=== PATIENT | male | born 2000 | race Caucasian/White ===

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

== ENCOUNTER → 2018-02-12 | Day surgery (SDC) | payer BC ==
[~2018-02-12] MED LIST: LACTATED RINGERS 1,000 ML IV SCH; LIDOCAINE 1% 20 ML VIAL (10MG/ML) FOR IV START INTRADERMA PRN
[2018-02-12 12:26] VITALS: BP 115/62; PULSE 66; RESP 16; TEMP 98.6
== END ==
LOC: ORWHC2ENDO 11:53
DX: R10.13 Epigastric pain (principal); R19.4 Change in bowel habit; Z53.8 Procedure and treatment not carried out for other reasons

== ENCOUNTER 2019-01-01 21:46 | Emergency (ER) | payer BC ==
[2019-01-01] MEDS ORDERED: ONDANSETRON ODT 4 MG TAB PO STA (22:37)
[2019-01-01] MEDS ORDERED: ACETAMINOPHEN TAB 500 MG TAB PO STA (22:37)
[2019-01-01] MEDS ORDERED: IBUPROFEN 600 MG TAB PO STA (22:37)
--- NOTE | 2019-01-01 22:37 | ED ---
General Adult HPI - General Source: patient, family, RN notes reviewed Mode of arrival: ambulatory Limitations: no limitations <Johny Matson - Last Filed: 01/02/19 23:28> <Jose Hutson - Last Filed: 01/03/19 07:59> - General Chief complaint: Shortness of Breath Stated complaint: NVD Headache, foot infection Time Seen by Provider: 01/01/19 22:25 - History of Present Illness Initial comments: 18-year-old male presents to the emergency department for multiple complaints. Patient's main complaint is cough. Patient states he has had a cough for 6 months that has worsened in the past several days. Denies smoking. Denies coughing anything up, states this is a dry cough. States he gets coughing so hard he feels short of breath at times. He states he is also having nausea vomiting and diarrhea since yesterday. Patient denies any abdominal pain with this. Patient also complains of an infection on the bottom of his right foot. States this has been there for months.Patient has no other complaints at this time including shortness of breath, chest pain, abdominal pain, headache, or visual changes. (Johny Matson) - Related Data Home Medications Medication Instructions Recorded Confirmed Phenylephrine/Dm/Acetaminop/GG 1 tab PO BID PRN 01/01/19 01/01/19 [Tylenol Cold-Flu Severe Caplet] Allergies Allergy/AdvReac Type Severity Reaction Status Date / Time Penicillins Allergy Anaphylaxis Verified 01/01/19 22:37 Review of Systems ROS Other: All systems not noted in ROS Statement are negative. <Johny Matson - Last Filed: 01/02/19 23:28> ROS Other: All systems not noted in ROS Statement are negative. <Jose Hutson - Last Filed: 01/03/19 07:59> ROS Statement: Those systems with pertinent positive or pertinent negative responses have been documented in the HPI. Past Medical History Past Medical History: No Reported History Additional Past Medical History / Comment(s): chronic diarrhea. per grandmothe r, "enlarged spleen." COLONOSCOPY/EGD CANCELED 02/13/18 D/T UNABLE TO TOLERATE LIQUID BOWEL PREP, HAD VOMITED. History of Any Multi-Drug Resistant Organisms: None Reported Past Surgical History: No Surgical Hx Reported Past Anesthesia/Blood Transfusion Reactions: No Reported Reaction, Family History of Problems w/ Anesthesia Additional Past Anesthesia/Blood Transfusion Reaction / Comment(s): MOTHER & Grandma wakes up during surgery. Patient has never had anesthesia. Severe phobia of needles. Past Psychological History: No Psychological Hx Reported Smoking Status: Never smoker Past Alcohol Use History: Rare Past Drug Use History: Marijuana <Johny Matson P - Last Filed: 01/02/19 23:28> General Exam Limitations: no limitations General appearance: alert, in no apparent distress Head exam: Present: atraumatic, normocephalic, normal inspection Eye exam: Present: normal appearance, PERRL, EOMI. Absent: scleral icterus, conjunctival injection, periorbital swelling ENT exam: Present: normal exam, mucous membranes moist Neck exam: Present: normal inspection, full ROM. Absent: tenderness, meningism us, lymphadenopathy, thyromegaly Respiratory exam: Present: normal lung sounds bilaterally. Absent: respiratory distress, wheezes, rales, rhonchi, stridor Cardiovascular Exam: Present: regular rate, normal rhythm, normal heart sounds. Absent: systolic murmur, diastolic murmur, rubs, gallop, clicks GI/Abdominal exam: Present: soft, tenderness (mild tenderness withot gurading noted to LLQ), normal bowel sounds. Absent: distended, guarding, rebound, rigid Extremities exam: Present: other (patient has a wart present on the bottom of the right foot. NO erythema or evidence of infection) Neurological exam: Present: alert, oriented X3, CN II-XII intact Psychiatric exam: Present: normal affect, normal mood <Johny Matson P - Last Filed: 01/02/19 23:28> Course <Johny Matson P - Last Filed: 01/02/19 23:28> Vital Signs 01/01/19 01/01/19 01/01/19 21:51 22:30 22:36 Temperature 99.2 F 101.6 F H Pulse Rate 129 H Respiratory 20 20 Rate Blood Pressure 123/60 O2 Sat by Pulse 98 Oximetry 01/01/19 01/02/19 01/02/19 23:44 01:59 02:43 Temperature 102.7 F H 98.8 F 98.9 F Pulse Rate 104 H 97 102 H Respiratory 19 20 20 Rate Blood Pressure 148/78 O2 Sat by Pulse 97 98 Oximetry - Reevaluation(s) Reevaluation #1: 01/02/19 22:00 given patient's fever and tachycardia I recommend IV and blood work due to multiple concerns. These were discussed with patient. Patient refuses these stating he does not want an IV or blood work done and would rather see his primary care provider. (Johny Matson) Reevaluation #2: 01/02/19 23:00 Dr. Barajas saw patient. Further recommends IV which patient does finally agree to. Given the patient's tachycardia and cough with shortness of breath is concerned for PE. Given LLQ abdominal pain, NVD, and fever CT will be ordered of abdomen pelvis. (Johny Matson) Reevaluation #3: 01/02/19 00:35 CT came to room to take patient. Patient apparently told them he did not want to go right now and would rather go to the bathroom at this time. (Johny Matson) Medical Decision Making - Lab Data Result diagrams: 01/02/19 00:22 01/02/19 00:22 <Johny Matson - Last Filed: 01/02/19 23:28> - Lab Data Result diagrams: 01/02/19 00:22 01/02/19 00:22 <Jose Hutson - Last Filed: 01/03/19 07:59> - Medical Decision Making 18-year-old male since to the emergency department for multiple complaints. Main complaint is cough that he has had for 6 months that worsened in the past several days with some shortness of breath. Denies smoking. Patient also has nausea vomiting diarrhea since yesterday. Denies any abdominal pain with this. However patient does have redness that is the left lower quadrant on exam. CBC does show mild white count of 12.9, likely reactive in nature. CMP unremarkable. CT abdomen and pelvis does show scattered fluid and air fluid levels and nondilated small and large bowel which are nonspecific and may reflect mild ileus or enterocolitis. Chest CTA shows no evidence of pulmonary embolism. Patient is febrile here in the emergency department. Likely has a viral syndrome. Patient will follow up with primary care in 1-2 days. Will return here if he has any worsening symptoms. (Johny Matson) I saw this patient in conjunction with the physician painter assistant. I performed independent history and physical exam. Agree with case management. (Jose Hutson) - Lab Data Lab Results 01/01/19 01/02/19 01/02/19 Range/Units 22:25 00:22 00:22 WBC 12.9 H (4.0-11.0) k/uL RBC 5.25 (4.30-5.90) m/uL Hgb 13.5 (13.0-17.5) gm/dL Hct 40.9 (39.0-53.0) % MCV 77.7 L (80.0-100.0) fL MCH 25.7 (25.0-35.0) pg MCHC 33.1 (31.0-37.0) g/dL RDW 14.0 (11.5-15.5) % Plt Count 173 (150-450) k/uL Neutrophils % 85 % Lymphocytes % 10 % Monocytes % 3 % Eosinophils % 2 % Basophils % 0 % Neutrophils # 10.9 H (1.3-7.7) k/uL Lymphocytes # 1.2 (1.0-4.8) k/uL Monocytes # 0.4 (0-1.0) k/uL Eosinophils # 0.3 (0-0.7) k/uL Basophils # 0.0 (0-0.2) k/uL PT (9.0-12.0) sec INR (<1.2) APTT (22.0-30.0) sec D-Dimer (<0.60) mg/L FEU Sodium 134 L (137-145) mmol/L Potassium 4.6 (3.5-5.1) mmol/L Chloride 100 (98-107) mmol/L Carbon Dioxide 22 (22-30) mmol/L Anion Gap 12 mmol/L BUN 14 (9-20) mg/dL Creatinine 0.71 (0.66-1.25) mg/dL Est GFR (CKD-EPI)AfAm >90 (>60 ml/min/1.73 sqM) Est GFR (CKD-EPI)NonAf >90 (>60 ml/min/1.73 sqM) Glucose 91 (74-99) mg/dL Plasma Lactic Acid Holden (0.7-2.0) mmol/L Calcium 8.8 (8.4-10.2) mg/dL Total Bilirubin 1.4 H (0.2-1.3) mg/dL AST 23 (17-59) U/L ALT 22 (21-72) U/L Alkaline Phosphatase 92 (38-126) U/L Troponin I (0.000-0.034) ng/mL Total Protein 7.4 (6.3-8.2) g/dL Albumin 3.8 (3.5-5.0) g/dL Influenza Type A RNA Not Detected (Not Detectd) Influenza Type B (PCR) Not Detected (Not Detectd) 01/02/19 01/02/19 01/02/19 Range/Units 00:34 00:34 00:34 WBC (4.0-11.0) k/uL RBC (4.30-5.90) m/uL Hgb (13.0-17.5) gm/dL Hct (39.0-53.0) % MCV (80.0-100.0) fL MCH (25.0-35.0) pg MCHC (31.0-37.0) g/dL RDW (11.5-15.5) % Plt Count (150-450) k/uL Neutrophils % % Lymphocytes % % Monocytes % % Eosinophils % % Basophils % % Neutrophils # (1.3-7.7) k/uL Lymphocytes # (1.0-4.8) k/uL Monocytes # (0-1.0) k/uL Eosinophils # (0-0.7) k/uL Basophils # (0-0.2) k/uL PT 10.4 (9.0-12.0) sec INR 1.0 (<1.2) APTT 27.9 (22.0-30.0) sec D-Dimer 0.80 H (<0.60) mg/L FEU Sodium (137-145) mmol/L Potassium (3.5-5.1) mmol/L Chloride (98-107) mmol/L Carbon Dioxide (22-30) mmol/L Anion Gap mmol/L BUN (9-20) mg/dL Creatinine (0.66-1.25) mg/dL Est GFR (CKD-EPI)AfAm (>60 ml/min/1.73 sqM) Est GFR (CKD-EPI)NonAf (>60 ml/min/1.73 sqM) Glucose (74-99) mg/dL Plasma Lactic Acid Holden 1.2 (0.7-2.0) mmol/L Calcium (8.4-10.2) mg/dL Total Bilirubin (0.2-1.3) mg/dL AST (17-59) U/L ALT (21-72) U/L Alkaline Phosphatase (38-126) U/L Troponin I <0.012 (0.000-0.034) ng/mL Total Protein (6.3-8.2) g/dL Albumin (3.5-5.0) g/dL Influenza Type A RNA (Not Detectd) Influenza Type B (PCR) (Not Detectd) Disposition Is patient prescribed a controlled substance at d/c from ED?: No Time of Disposition: 23:32 <Johny Matson - Last Filed: 01/02/19 23:28> Is patient prescribed a controlled substance at d/c from ED?: No <Jose Hutson - Last Filed: 01/03/19 07:59> Clinical Impression: Fever, Viral syndrome Disposition: HOME SELF-CARE Condition: Fair Instructions (If sedation given, give patient instructions): Viral Syndrome (ED) Referrals: Emmy Denis MD [Primary Care Provider] - 1-2 days
--- NOTE | 2019-01-01 23:20 | XR ---
EXAM: XR Chest, 2 Views CLINICAL HISTORY: Reason: Pain TECHNIQUE: Frontal and lateral views of the chest. COMPARISON: Chest x-ray 07/11/2017 FINDINGS: Lungs: Lungs are clear without infiltrates or consolidations. Pleural space: No evidence of pleural effusion or pneumothorax. Heart: Heart size is within normal limits. Mediastinum: Mediastinal structures are unremarkable. Bones/joints: Imaged bony thorax is unremarkable. IMPRESSION: No evidence of acute cardiopulmonary disease.
[2019-01-02] MEDS ORDERED: SODIUM CHLORIDE 0.9% 500 ML 500 ML IV STA (00:01)
[2019-01-02 00:37] LABS: Basophils % (A) 0 %; Eosinophils # (A) 0.3 k/uL (0-0.7); Eosinophils % (A) 2 %; HCT 40.9 % (39.0-53.0); HGB 13.5 gm/dL (13.0-17.5); Lymphocytes # (A) 1.2 k/uL (1.0-4.8); Lymphocytes % (A) 10 %; MCH 25.7 pg (25.0-35.0); MCHC 33.1 g/dL (31.0-37.0); MCV 77.7 fL (80.0-100.0); Mean Platelet Volume 7.2; Monocytes # (A) 0.4 k/uL (0-1.0); Monocytes % (A) 3 %; Neutrophils # (A) 10.9 k/uL (1.3-7.7); Neutrophils % (A) 85 %; Platelet Count 173 k/uL (150-450); RBC 5.25 m/uL (4.30-5.90); WBC 12.9 k/uL (4.0-11.0)
[2019-01-02 00:44] LABS: ALT 22 U/L (21-72); AST 23 U/L (17-59); Albumin 3.8 g/dL (3.5-5.0); Alkaline Phosphatase 92 U/L (38-126); Anion Gap 12 mmol/L; Blood Urea Nitrogen 14 mg/dL (9-20); Calcium 8.8 mg/dL (8.4-10.2); Carbon Dioxide 22 mmol/L (22-30); Chloride 100 mmol/L (98-107); Glucose 91 mg/dL (74-99); Sodium 134 mmol/L (137-145); Total Bilirubin 1.4 mg/dL (0.2-1.3); Total Protein 7.4 g/dL (6.3-8.2)
[2019-01-02 00:57] LABS: Potassium 4.6 mmol/L (3.5-5.1)
[2019-01-02 01:04] LABS: Partial Thromboplastin Time 27.9 sec (22.0-30.0); Prothrombin Time 10.4 sec (9.0-12.0)
[2019-01-02 01:13] LABS: D-Dimer 0.8 mg/L FEU (<0.60)
[2019-01-02 02:00] VITALS: RESP 20
--- NOTE | 2019-01-02 02:03 | CT ---
EXAM: CT Angiography Chest With Intravenous Contrast CLINICAL HISTORY: Reason: Pain TECHNIQUE: Axial computed tomographic angiography images of the chest with intravenous contrast using pulmonary embolism protocol. CTDI is 121.4 mGy and DLP is 3885.1 mGy-cm. This CT exam was performed using one or more of the following dose reduction techniques: automated exposure control, adjustment of the mA and/or kV according to patient size, and/or use of iterative reconstruction technique. MIP reconstructed images were created and reviewed. COMPARISON: Chest x-ray 01/01/2019 FINDINGS: Limitations: Technically limited CTA examination due to patient body habitus with motion and beam hardening artifact. Pulmonary arteries: No evidence of central pulmonary embolism. More peripheral pulmonary embolic disease cannot be excluded. Aorta: No thoracic aortic aneurysm or evidence of dissection. Lungs: No evidence of acute pulmonary parenchymal disease or consolidation. Pleural space: No evidence of pleural effusion or pneumothorax. Heart: Heart size is within normal limits. No significant pericardial effusion. Bones/joints: No acute bony abnormalities identified. Soft tissues: Mild bilateral gynecomastia. Lymph nodes: No pathologically enlarged lymphadenopathy. IMPRESSION: No evidence of central pulmonary embolism. No thoracic aortic aneurysm or evidence of dissection.
--- NOTE | 2019-01-02 02:22 | CT ---
EXAM: CT Abdomen and Pelvis With Intravenous Contrast CLINICAL HISTORY: Reason: Pain TECHNIQUE: Axial computed tomography images of the abdomen and pelvis with intravenous contrast. CTDI is 121.4 mGy and DLP is 3885.1 mGy-cm. This CT exam was performed using one or more of the following dose reduction techniques: automated exposure control, adjustment of the mA and/or kV according to patient size, and/or use of iterative reconstruction technique. COMPARISON: CT abdomen-pelvis 12/04/2017 FINDINGS: Lung bases: Imaged lung bases are clear. ABDOMEN: Liver: Liver is unremarkable. Gallbladder and bile ducts: Gallbladder is unremarkable. No evidence of biliary dilatation. No calcified stones. Pancreas: Pancreas is unremarkable. Spleen: Mild splenomegaly measuring 15.9 cm. Adrenals: No adrenal masses. Kidneys and ureters: Bilateral symmetric renal enhancement. No evidence of renal calculi or hydronephrosis. Stomach and bowel: No evidence of bowel obstruction or pneumoperitoneum. Scattered fluid in air-fluid levels in nondilated small and large bowel which are nonspecific and may reflect mild ileus or possible enterocolitis. PELVIS: Appendix: Normal-appearing retrocecal appendix. No evidence of appendicitis. Bladder: Urinary bladder is nondistended. No bladder calculi. Reproductive: Unremarkable as visualized. ABDOMEN and PELVIS: Intraperitoneal space: See above. Bones/joints: No acute bony abnormalities identified. Vasculature: No abdominal aortic aneurysm. Lymph nodes: No pathologically enlarged lymphadenopathy. IMPRESSION: Scattered fluid in air-fluid levels in nondilated small and large bowel which are nonspecific and may reflect mild ileus or possible enterocolitis. Mild splenomegaly.
[2019-01-02 02:44] VITALS: BP 148/78; PULSE 102; TEMP 98.9
== END 2019-01-02 02:49 | disposition home or self-care (01) ==
LOC: EC 21:46
DX: B34.9 Viral infection, unspecified (principal); R00.0 Tachycardia, unspecified; R06.02 Shortness of breath; Z88.0 Allergy status to penicillin
CPT/HCPCS: 36415; 71046; 71275; 74177; 80053; 83605; 84484; 85025; 85379; 85610; 85730; 87040; 87502; 93005; 99285

== ENCOUNTER 2021-04-13 14:04 | Emergency (ER) | payer OTHER ==
[2021-04-13 14:39] VITALS: BP 125/87; PULSE 94; RESP 18; TEMP 98.7
[2021-04-13] MEDS ORDERED: ACETAMINOPHEN TAB 500 MG TAB PO STA (15:50)
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
[2021-04-13] MEDS ORDERED: IBUPROFEN 600 MG STARTER PACK 4 TAB BTL PO STA (16:58)
== END 2021-04-13 17:13 | disposition home or self-care (01) ==
LOC: EC 14:04
DX: S93.401A Sprain of unspecified ligament of right ankle, initial encounter (principal); R51.9 Headache, unspecified; Z88.0 Allergy status to penicillin; V89.2XXA Person injured in unspecified motor-vehicle accident, traffic, initial encounter; Y92.410 Unspecified street and highway as the place of occurrence of the external cause
CPT/HCPCS: 70450; 72125; 99284

== ENCOUNTER 2021-09-27 19:08 | Emergency (ER) | payer BC, OTHER ==
[2021-09-27 21:02] VITALS: TEMP 98.9
--- NOTE | 2021-09-27 21:29 | XR ---
EXAMINATION TYPE: XR chest 2V DATE OF EXAM: 09/27/2021 COMPARISON: 01/01/2019 HISTORY: Cough TECHNIQUE: FINDINGS: Heart and mediastinum are normal. Lungs are clear. Diaphragm is normal. Bony thorax appears normal. IMPRESSION: Normal chest. No change.
[2021-09-27] MEDS ORDERED: ACETAMINOPHEN TAB 500 MG TAB PO STA (22:19)
[2021-09-27] MEDS ORDERED: dexAMETHasone 2 MG TAB PO STA (22:19)
--- NOTE | 2021-09-27 22:19 | ED ---
General Adult HPI - General Chief complaint: Upper Respiratory Infection Stated complaint: bronchitis Time Seen by Provider: 09/27/21 22:01 Source: patient, RN notes reviewed Mode of arrival: ambulatory Limitations: no limitations - History of Present Illness Initial comments: 21-year-old male presents to the emergency department with cough, and congest ion, onset Monday. Patient states his symptoms worsened last night and into today therefore came to the emergency department for evaluation. Patient states he is not vaccinated and has a history of asthma therefore is concerned about either bronchitis or COVID-19. States he feels somewhat short of breath with activity. Reports mild fatigue and headache. Had a fever earlier today. Denies chest pain, difficulty breathing, abdominal pain, nausea, constipation, diarrhea, dysuria, or hematuria. - Related Data Home Medications Medication Instructions Recorded Confirmed Phenylephrine/Dm/Acetaminop/GG 1 tab PO BID PRN 01/01/19 01/01/19 [Tylenol Cold-Flu Severe Caplet] Previous Rx's Medication Instructions Recorded Dexamethasone [Decadron] 6 mg PO DAILY #10 tablet 09/27/21 Allergies Allergy/AdvReac Type Severity Reaction Status Date / Time bee venom protein (honey bee) Allergy Anaphylaxis Verified 09/27/21 21:06 Penicillins Allergy Anaphylaxis Verified 09/27/21 21:06 Review of Systems ROS Statement: Those systems with pertinent positive or pertinent negative responses have been documented in the HPI. ROS Other: All systems not noted in ROS Statement are negative. Past Medical History Past Medical History: Asthma Additional Past Medical History / Comment(s): chronic diarrhea. per grandmother, "enlarged spleen." COLONOSCOPY/EGD CANCELED 02/13/18 D/T UNABLE TO TOLERATE LIQUID BOWEL PREP, HAD VOMITED. History of Any Multi-Drug Resistant Organisms: None Reported Past Surgical History: No Surgical Hx Reported Past Anesthesia/Blood Transfusion Reactions: No Reported Reaction, Family History of Problems w/ Anesthesia Additional Past Anesthesia/Blood Transfusion Reaction / Comment(s): MOTHER & Grandma wakes up during surgery. Patient has never had anesthesia. Severe phobia of needles. Past Psychological History: No Psychological Hx Reported Past Alcohol Use History: Rare Past Drug Use History: Marijuana - Past Family History Mother Family Medical History: Unable to Obtain General Exam Limitations: no limitations (Well-developed, well-nourished male in no acute distress. Initial temperature 98.9, pulse 118, respirations 22, blood pressure 141/78, pulse ox 97% on room air.) General appearance: alert, in no apparent distress Eye exam: Present: normal appearance, PERRL, EOMI. Absent: scleral icterus, conjunctival injection, periorbital swelling ENT exam: Present: normal exam, normal oropharynx, mucous membranes moist Respiratory exam: Present: normal lung sounds bilaterally. Absent: respiratory distress, wheezes, rales, rhonchi, stridor, chest wall tenderness Cardiovascular Exam: Present: regular rate, tachycardia, normal heart sounds GI/Abdominal exam: Present: soft, normal bowel sounds. Absent: distended, tenderness, guarding, rebound, rigid Neurological exam: Present: alert, oriented X3, CN II-XII intact Psychiatric exam: Present: normal affect, normal mood Skin exam: Present: warm, dry, intact, normal color. Absent: rash Course Vital Signs 09/27/21 20:58 Temperature 98.9 F Pulse Rate 118 H Respiratory 22 Rate Blood Pressure 141/78 O2 Sat by Pulse 97 Oximetry Medical Decision Making - Medical Decision Making 21-year-old morbidly obese male with a history of asthma presents to the emergency department for evaluation of a congested cough, fatigue, and fever. Upon exam, patient is well-appearing and in no acute distress. Patient has a measurable low-grade temperature at 99.4 and reflexive tachycardia. His oxygen saturation is greater than 95% on room air and he has no increased work of breathing; Lung sounds are clear to auscultation. Patient is unvaccinated and did test positive for COVID-19. Chest x-ray is unremarkable. He does have an albuterol inhaler at home that he uses occasionally, but not daily. Due to his elevated BMI patient is eligible for monoclonal antibody infusion, however states he is not comfortable with this as he has been told that an ALLERGY to penicillin is a contraindication to receiving the infusion. Discussed this with the patient further stating that there is no evidence to support this, however told him if he did change his mind regarding this he could contact his PCP or return here. Patient will be discharged home on Decadron with strict return parameters. Patient verbalizes understanding and agrees with this plan. This patient's care was discussed with my attending Dr. Hutson. - Lab Data Lab Results 09/27/21 Range/Units 21:05 Coronavirus (PCR) Detected A (Not Detectd) - Radiology Data Radiology results: report reviewed, image reviewed Two-view chest x-ray was obtained. Report was reviewed in its entirety. I mpression per Dr. Stock is normal chest. No change. Disposition Clinical Impression: COVID-19 Disposition: HOME SELF-CARE Condition: Stable Instructions (If sedation given, give patient instructions): Coronavirus Disease 2019 (COVID-19) Additional Instructions: Treat fever with alternating Tylenol and Motrin. Take Decadron daily as directed. Consider taking vitamin C, vitamin D, and Zinc. You were provided with a work note and should isolate until 10/06/21 Continue using your inhaler. Call your PCP to schedule a video or phone visit for a recheck. Return to the emergency department with any new, worsening, or concerning symptoms. Prescriptions: Dexamethasone [Decadron] 6 mg PO DAILY #10 tablet Is patient prescribed a controlled substance at d/c from ED?: No Referrals: Emmy Denis MD [Primary Care Provider] - 1-2 days Time of Disposition: 22:50
[2021-09-27 22:59] VITALS: RESP 18
[2021-09-27 23:00] VITALS: BP 146/91; PULSE 108
== END 2021-09-27 22:59 | disposition home or self-care (01) ==
LOC: EC 19:08
DX: U07.1 COVID-19 (principal); J45.909 Unspecified asthma, uncomplicated; Z91.030 Bee allergy status; Z88.0 Allergy status to penicillin
CPT/HCPCS: 87635; 71046; 99283; J8540

== ENCOUNTER 2022-04-05 04:01 | Emergency (ER) | payer OTHER ==
[2022-04-05 04:07] VITALS: BP 135/79; PULSE 101; RESP 20; TEMP 98.2
[2022-04-05] MEDS ORDERED: ONDANSETRON 4 MG/2 ML VIAL IVP STA (06:25)
[2022-04-05] MEDS ORDERED: SODIUM CHLORIDE 0.9% 2,000 ML IV STA (06:25)
[2022-04-05] MEDS ORDERED: ONDANSETRON 4 MG ODT STARTER PACK 2 TAB BTL PO STA (06:42)
--- NOTE | 2022-04-05 06:47 | ED ---
General Adult HPI - General Chief complaint: Nausea/Vomiting/Diarrhea Stated complaint: Vomiting blood Time Seen by Provider: 04/05/22 06:06 Source: patient, family, RN notes reviewed Mode of arrival: wheelchair Limitations: no limitations - History of Present Illness Initial comments: This a 21-year-old male presents emergency Department chief complaints of nausea vomiting diarrhea. Patient states she's been sick since o'clock last night. Patient alleviate something that upset stomach. Patient denies any fevers chills no sick contacts. Denies chest pain or any localized abdominal pain. He states he has some mild diffuse pain. No dysuria no hematuria. The patient denies any rectal bleeding. Patient states he thought he saw some specks of blood in his emesis but is more orange color. Patient denies any prior abdominal surgeries no other complaints. - Related Data Home Medications Medication Instructions Recorded Confirmed Phenylephrine/Dm/Acetaminop/GG 1 tab PO BID PRN 01/01/19 01/01/19 [Tylenol Cold-Flu Severe Caplet] Previous Rx's Medication Instructions Recorded dexAMETHasone [Decadron] 6 mg PO DAILY #10 tablet 09/27/21 Ondansetron Odt [Zofran Odt] 4 mg PO Q8HR PRN #10 tab 04/05/22 Allergies Allergy/AdvReac Type Severity Reaction Status Date / Time bee venom protein (honey bee) Allergy Anaphylaxis Verified 04/05/22 04:07 Penicillins Allergy Anaphylaxis Verified 04/05/22 04:07 Review of Systems ROS Statement: Those systems with pertinent positive or pertinent negative responses have been documented in the HPI. ROS Other: All systems not noted in ROS Statement are negative. Past Medical History Past Medical History: Asthma Additional Past Medical History / Comment(s): chronic diarrhea. per grandmother, "enlarged spleen." COLONOSCOPY/EGD CANCELED 02/13/18 D/T UNABLE TO TOLERATE LIQUID BOWEL PREP, HAD VOMITED. History of Any Multi-Drug Resistant Organisms: None Reported Past Surgical History: No Surgical Hx Reported Past Anesthesia/Blood Transfusion Reactions: No Reported Reaction, Family History of Problems w/ Anesthesia Additional Past Anesthesia/Blood Transfusion Reaction / Comment(s): MOTHER & Grandma wakes up during surgery. Patient has never had anesthesia. Severe phobia of needles. Past Psychological History: Anxiety, Depression Smoking Status: Never smoker Past Alcohol Use History: Rare Past Drug Use History: Marijuana - Past Family History Mother Family Medical History: Unable to Obtain General Exam Limitations: no limitations General appearance: alert, in no apparent distress Head exam: Present: atraumatic, normocephalic, normal inspection Eye exam: Present: normal appearance, PERRL, EOMI. Absent: scleral icterus, conjunctival injection, periorbital swelling ENT exam: Present: normal exam, normal oropharynx, mucous membranes moist Neck exam: Present: normal inspection, full ROM. Absent: tenderness, meningismus, lymphadenopathy Respiratory exam: Present: normal lung sounds bilaterally. Absent: respiratory distress, wheezes, rales, rhonchi, stridor Cardiovascular Exam: Present: regular rate, normal rhythm, normal heart sounds. Absent: systolic murmur, diastolic murmur, rubs, gallop, clicks GI/Abdominal exam: Present: soft, tenderness (Minimal diffuse primarily epigastric), normal bowel sounds. Absent: distended, guarding, rebound, rigid Back exam: Absent: CVA tenderness (R), CVA tenderness (L) Course Vital Signs 04/05/22 04:03 Temperature 98.2 F Pulse Rate 101 H Respiratory 20 Rate Blood Pressure 135/79 O2 Sat by Pulse 96 Oximetry Medical Decision Making - Medical Decision Making patient had labs, fluids, antiemetics ordered patient refuses IV stating to the nurse that he has to afraid did have a long discussion with the patient to his not have a localized tender abdomen nonsurgical abdomen at this time patient will be given Zofran he was given strict return parameters Disposition Clinical Impression: Gastroenteritis Disposition: HOME SELF-CARE Condition: Stable Instructions (If sedation given, give patient instructions): Gastroenteritis (ED) Additional Instructions: Please return to the Emergency Department if symptoms worsen or any other concerns. Prescriptions: Ondansetron Odt [Zofran Odt] 4 mg PO Q8HR PRN #10 tab PRN Reason: Nausea Is patient prescribed a controlled substance at d/c from ED?: No Referrals: None,Stated [Primary Care Provider] - 1-2 days Time of Disposition: 06:47
[2022-04-05 07:40] LABS: Appearance,Urine Clear (Clear); Bilirubin,Urine Negative (Negative); Blood,Urine Negative (Negative); Color,Urine Yellow; Glucose,Urine (UA) Negative (Negative); Ketones,Urine Negative (Negative); Leukocyte Esterase,Urine Negative (Negative); Nitrite,Urine Negative (Negative); PH, Urine 5.5 (5.0-8.0); Protein,Urine Negative (Negative); Specific Gravity,Urine 1.028 (1.001-1.035); Urobilinogen,Urine <2.0 mg/dL (<2.0)
== END 2022-04-05 07:01 | disposition home or self-care (01) ==
LOC: EC 04:01
DX: K52.9 Noninfective gastroenteritis and colitis, unspecified (principal); J45.909 Unspecified asthma, uncomplicated; F32.A Depression, unspecified; F41.9 Anxiety disorder, unspecified; F12.90 Cannabis use, unspecified, uncomplicated; Z91.030 Bee allergy status; Z88.0 Allergy status to penicillin
CPT/HCPCS: 99284; 81003; S0119

== ENCOUNTER → 2024-08-21 | Outpatient (CLI) | payer OTHER | LOC: 3 N SLEEP 15:31 | PROVIDERS: ATTEND Internal Medicine | DX: Z53.9 Procedure and treatment not carried out, unspecified reason (principal) ==